=== PATIENT | male | born 1950 | race Caucasian/White ===

== ENCOUNTER 2018-07-08 17:50 | Emergency (ER) | payer MEDICARE, OTHER ==
--- NOTE | 2018-07-08 19:55 | ER Document Report ---
ED Medical Screen (RME) - General Chief Complaint: Foot Pain Stated Complaint: FOOT PAIN Time Seen by Provider: 07/08/18 19:54 Mode of Arrival: Wheelchair Information source: Patient, Relative Notes: This is a 68-year-old gentleman with a history of diabetes, hypertension, GERD, morbid obesity who presents to the emergency room with right lower extremity pain and swelling. Patient states that it been hurting him for the past 3 days. He states that it is difficult for him to bear weight because of the pain. He denies any fever. He denies any recent illnesses. TRAVEL OUTSIDE OF THE [place] IN LAST 30 DAYS: No - Related Data Allergies/Adverse Reactions: No Known Allergies Allergy (Unverified 07/08/18 18:05) Physical Exam - Vital signs Vitals: Temp Pulse Resp BP Pulse Ox 99.2 F 82 16 146/66 H 96 07/08/18 18:16 07/08/18 18:16 07/08/18 18:16 07/08/18 18:16 07/08/18 18:16 Course - Vital Signs Vital signs: Temp Pulse Resp BP Pulse Ox 99.2 F 82 16 146/66 H 96 07/08/18 18:16 07/08/18 18:16 07/08/18 18:16 07/08/18 18:16 07/08/18 18:16
--- NOTE | 2018-07-08 20:35 | RADIOLOGY REPORT (SQ) ---
EXAM DESCRIPTION: XR FOOT 3 OR MORE VIEWS COMPLETED DATE/TME: 07/08/2018 19:57 CLINICAL HISTORY: 68 years, Male, right foot pain COMPARISON: None. NUMBER OF VIEWS: TECHNIQUE: LIMITATIONS: None. FINDINGS: There is soft tissue swelling, most apparent dorsally. No fracture or dislocation. There are small calcaneal spurs. IMPRESSION: Soft tissue swelling. copyright 2010 [employer]- All Rights Reserved
--- NOTE | 2018-07-08 20:37 | RADIOLOGY REPORT (SQ) ---
EXAM DESCRIPTION: XR ANKLE 2 VIEWS COMPLETED DATE/TME: 07/08/2018 19:57 CLINICAL HISTORY: 68 years, Male, right foot and ankle pain COMPARISON: None. NUMBER OF VIEWS: TECHNIQUE: LIMITATIONS: None. FINDINGS: There is diffuse soft tissue edema. No fracture or dislocation. There are small calcaneal spurs. IMPRESSION: Diffuse soft tissue edema. copyright 2010 [employer]- All Rights Reserved
[2018-07-08 20:54] LABS: ABSOLUTE LYMPHOCYTES (AUTO) 1.1 10^3/uL (0.5-4.7); ABSOLUTE MONOCYTES (AUTO) 0.6 10^3/uL (0.1-1.4); ABSOLUTE NEUT (AUTO) 8.2 10^3/uL (1.7-8.2); BASOPHILS % (AUTO) 0.4 % (0-2); EOSINOPHILS % (AUTO) 0.3 % (0-6); HEMATOCRIT 39.1 % (37.9-51.0); HEMOGLOBIN 13.5 g/dL (13.5-17.0); LYMPHOCYTES % (AUTO) 10.6 % (13-45); MEAN CORPUSCULAR HEMOGLOBIN 30.1 pg (27.0-33.4); MEAN CORPUSCULAR HGB CONC 34.6 g/dL (32.0-36.0); MEAN CORPUSCULAR VOLUME 87 fl (80-97); MONOCYTES % (AUTO) 5.6 % (3-13); PLATELET COUNT 165 10^3/uL (150-450); RED BLOOD COUNT 4.48 10^6/uL (4.35-5.55); RED CELL DISTRIBUTION WIDTH 13.8 % (11.5-14.0); SEGMENTED NEUTROPHILS % (AUTO) 83.1 % (42-78); TOTAL CELLS COUNTED % (AUTO) 100 %; WHITE BLOOD COUNT 9.9 10^3/uL (4.0-10.5)
[2018-07-08 20:56] LABS: ALANINE AMINOTRANSFERASE 19 U/L (21-72); ALBUMIN 4.2 g/dL (3.5-5.0); ALKALINE PHOSPHATASE 96 U/L (38-126); ANION GAP 10 (5-19); ASPARTATE AMINO TRANSFERASE 13 U/L (17-59); BILIRUBIN,DIRECT 0.3 mg/dL (0.0-0.4); BILIRUBIN,TOTAL 0.7 mg/dL (0.2-1.3); BLOOD UREA NITROGEN 39 mg/dL (7-20); CARBON DIOXIDE 31 mmol/L (22-30); CHLORIDE 100 mmol/L (98-107); GLUCOSE 138 mg/dL (75-110); POTASSIUM 4.6 mmol/L (3.6-5.0); SODIUM 140.9 mmol/L (137-145); URIC ACID 10.2 mg/dL (3.5-8.5)
[2018-07-09] MEDS ORDERED: PREDNISONE 20 MG TABLET PO ONE (00:39)
--- NOTE | 2018-07-09 00:43 | ER Document Report ---
ED General - General Chief Complaint: Foot Pain Stated Complaint: FOOT PAIN Time Seen by Provider: 07/08/18 19:54 Mode of Arrival: Wheelchair Notes: Patient is a 68-year-old male with past medical history of diabetes, h ypertension, hyperlipidemia, chronic venous stasis, morbid obesity, presents with complaints of 2-3 days of progressively worsening right ankle pain. Describes it as a throbbing, aching, constant pain. Worsened with attempts at bearing weight or range of motion of the ankle. Nothing improves the pain. No history of similar pain in the past. No prior history of surgical instrumentation of the ankle. No trauma to the ankle. Has not seen his general physician regarding today's concerns. No fever or constitutional symptoms. TRAVEL OUTSIDE OF THE [place] IN LAST 30 DAYS: No - Related Data Allergies/Adverse Reactions: No Known Allergies Allergy (Unverified 07/08/18 18:05) Past Medical History - General Information source: Patient, Relative - Social History Smoking Status: Current Every Day Smoker Frequency of alcohol use: None Drug Abuse: None Lives with: Family Family History: Reviewed & Not Pertinent Patient has suicidal ideation: No Patient has homicidal ideation: No - Past Medical History Cardiac Medical History: Reports: Hx Hypertension Endocrine Medical History: Reports: Hx Diabetes Mellitus Type 2 Renal/ Medical History: Denies: Hx Peritoneal Dialysis GI Medical History: Reports: Hx Gastroesophageal Reflux Disease Past Surgical History: Reports: Hx Abdominal Surgery - laproscopic repair of colon Review of Systems - Review of Systems Notes: Constitutional: Negative for fever. HENT: Negative for sore throat. Eyes: Negative for visual changes. Cardiovascular: Negative for chest pain. Respiratory: Negative for shortness of breath. Gastrointestinal: Negative for abdominal pain, vomiting or diarrhea. Genitourinary: Negative for dysuria. Musculoskeletal: Positive for right foot and right ankle pain Skin: Negative for rash. Neurological: Negative for headaches, weakness or numbness. 10 point ROS negative except as marked above and in HPI. Physical Exam - Vital signs Vitals: Temp Pulse Resp BP Pulse Ox 99.2 F 82 16 146/66 H 96 07/08/18 18:16 07/08/18 18:16 07/08/18 18:16 07/08/18 18:16 07/08/18 18:16 Interpretation: Hypertensive Notes: PHYSICAL EXAMINATION: GENERAL: Well-appearing, well-nourished and in no acute distress. HEAD: Atraumatic, normocephalic. EYES: Pupils equal round and reactive to light, extraocular movements intact, sclera anicteric, conjunctiva are normal. ENT: nares patent, oropharynx clear without exudates. Moist mucous membranes. NECK: Normal range of motion, supple without lymphadenopathy LUNGS: Breath sounds clear to auscultation bilaterally and equal. No wheezes rales or rhonchi. HEART: Regular rate and rhythm without murmurs, 1+ DP pulse bilaterally ABDOMEN: Soft, morbidly obese abdomen, nontender, normoactive bowel sounds. No guarding, no rebound. No masses appreciated. EXTREMITIES: 2+ pitting edema in the bilateral lower extremities that is equal and symmetric. There is notably increased swelling of the right ankle versus the left with warmth to palpation. Dorsi and plantar flexion are intact at the right ankle. NEUROLOGICAL: No focal neurological deficits. Moves all extremities spontaneously and on command. PSYCH: Normal mood, normal affect. SKIN: Warm, Dry, normal turgor, chronic venous stasis changes bilaterally Course - Re-evaluation Re-evalutation: 07/09/18 00:41 Patient presents with 3 days of pain to the right ankle and the dorsum of the right foot. On exam the area is warm to palpation, mild associated inflammation. Patient does have preserved dorsi and plantar flexion. No fever or constitutional symptoms. No leukocytosis. Very low clinical suspicion for septic joint. No prior expectation or injury to the joint. X-rays unremarkab le. Patient's laboratories do note kidney dysfunction but the patient is uncertain of whether or not this is chronic. I have provided him a copy of his laboratories and informed him that he will need to have his kidney functions rechecked by his general physician to ensure that these are not new. The patient has been started on prednisone as I cannot utilize colchicine or NSAIDs given his renal dysfunction. At this time will discharge with return precautions and follow-up recommendations. Verbal discharge instructions given a the bedside and opportunity for questions given. Medication warnings reviewed. Patient is in agreement with this plan and has verbalized understanding of return precautions and the need for primary care follow-up in the next 24-72 hours. - Vital Signs Vital signs: Temp Pulse Resp BP Pulse Ox 99.0 F 86 16 148/63 H 96 07/09/18 00:56 07/09/18 00:56 07/09/18 00:56 07/09/18 00:56 07/09/18 00:56 - Laboratory Result Diagrams: 07/08/18 20:23 07/08/18 20:23 Laboratory results interpreted by me: 07/08/18 07/08/18 20:23 20:23 Seg Neutrophils % 83.1 H Lymphocytes % 10.6 L Carbon Dioxide 31 H BUN 39 H Creatinine 1.91 H Est GFR ( Amer) 42 L Est GFR (Non-Af Amer) 35 L Glucose 138 H Uric Acid 10.2 H AST 13 L ALT 19 L - Diagnostic Test Radiology reviewed: Image reviewed, Reports reviewed Radiology results interpreted by me: 07/09/18 00:43 Right foot x-ray: No acute fracture or dislocation Right ankle x-ray: No acute fracture or dislocation Discharge - Discharge Clinical Impression: Kidney dysfunction Gout of right ankle Qualifiers: Gout etiology: unspecified cause Chronicity: acute Qualified Code(s): M10.9 - Gout, unspecified Condition: Stable Disposition: HOME, SELF-CARE Additional Instructions: You were seen today for gout. Please take the steroids as prescribed. Steroids are being used today as opposed to alternative, more routine medications as her kidney functions were not normal today. I do not have old laboratories for comparison but I have included a printout of your labs today. Please follow-up with your general physician regarding this issue to ensure that these are not new changes as if they are he will require ongoing outpatient follow-up. Follow-up with your primary care doctor in the next several days. Return if you have fever greater than 100.4F, worsening pain, become unable to move the ankle, or have any other symptoms that are worrisome to you. Prescriptions: Prednisone [Deltasone 20 mg Tablet] 2 tab PO DAILY 7 Days tablet Referrals: [facility] [Primary Care Provider] - Follow up in 3-5 days
[2018-07-09 00:58] VITALS: BP 148/63
== END 2018-07-09 00:56 | disposition home or self-care (01) ==
LOC: ER 17:50
DX: N28.9 Disorder of kidney and ureter, unspecified (principal); M10.9 Gout, unspecified; I10 Essential (primary) hypertension; E11.9 Type 2 diabetes mellitus without complications; F17.200 Nicotine dependence, unspecified, uncomplicated
CPT/HCPCS: 99283; 36415; 84550; 85025; 80053; 73600; 73630; J7512